=== PATIENT | female | born 1995 | race Asian ===

== ENCOUNTER 2020-11-22 21:22 | Emergency (ER) | payer OTHER ==
[~2020-11-22] VITALS: Ht 165.1 cm; Wt 68.0 kg
[2020-11-22 21:35] VITALS: BP_SYST 120
[2020-11-22 23:15] VITALS: BP_SYST 122
== END 2020-11-22 23:15 | disposition home or self-care (01) ==
LOC: SED 21:22
DX: O9A.212 Injury, poisoning and certain other consequences of external causes complicating pregnancy, second trimester (principal); S50.312A Abrasion of left elbow, initial encounter; S50.311A Abrasion of right elbow, initial encounter; Z3A.26 26 weeks gestation of pregnancy; Z88.6 Allergy status to analgesic agent; Z88.8 Allergy status to other drugs, medicaments and biological substances; W10.9XXA Fall (on) (from) unspecified stairs and steps, initial encounter; Y93.89 Activity, other specified; Y92.89 Other specified places as the place of occurrence of the external cause; Y99.8 Other external cause status
CPT/HCPCS: 99284